=== PATIENT | male | born 1975 | race Caucasian/White ===

== ENCOUNTER 2021-05-16 23:07 | Emergency (ER) | payer OTHER ==
[2021-05-16 23:50] VITALS: TEMP 99.1
[2021-05-16] MEDS ORDERED: ONDANSETRON ODT 4 MG TAB PO STA (23:57)
[2021-05-17] MEDS ORDERED: SOTROVIMAB (EUA) 500 MG in SODIUM CHLORIDE 0.9% 100 ML IVPB ONE (01:30)
[2021-05-17] MEDS ORDERED: SODIUM CHLORIDE 0.9% 50 ML IVPB ONE (01:30)
--- NOTE | 2021-05-17 02:00 | ED ---
URI HPI - General Chief Complaint: Upper Respiratory Infection Stated Complaint: covid+, fever Time Seen by Provider: 05/17/21 01:02 Source: patient, family Mode of arrival: ambulatory Limitations: no limitations - History of Present Illness Initial Comments: This patient is a 45-year-old man who presents with complaint that he has not been feeling well since about Friday. He has been having some chills, feeling nauseated and is feeling increasingly weak. Patient believes that it may be some component of dehydration as she is not taking much by mouth. On Friday he took a home test and it did result positive for covid infection. She denies chest pain or dyspnea. No change in bowel movements. MD Complaint: other Onset/Timin -: days(s) Severity: mild Consistency: constant Improves With: nothing Worsens With: nothing Associated Symptoms: chills, nausea Treatments Prior to Arrival: none - Related Data Allergies Allergy/AdvReac Type Severity Reaction Status Date / Time Penicillins Allergy Unknown Verified 05/16/21 23:50 Childhood Review of Systems ROS Statement: Those systems with pertinent positive or pertinent negative responses have been documented in the HPI. ROS Other: All systems not noted in ROS Statement are negative. Constitutional: Reports: chills, weakness. Denies: fever Respiratory: Denies: cough, dyspnea, wheezes Cardiovascular: Denies: chest pain, edema, syncope Gastrointestinal: Reports: nausea. Denies: abdominal pain, vomiting, diarrhea Skin: Denies: rash Neurological: Denies: headache, weakness Past Medical History Past Medical History: Hypertension History of Any Multi-Drug Resistant Organisms: None Reported Past Surgical History: No Surgical Hx Reported Past Psychological History: No Psychological Hx Reported Smoking Status: Former smoker Past Alcohol Use History: None Reported Past Drug Use History: None Reported General Exam Limitations: no limitations General appearance: alert, in no apparent distress Head exam: Present: atraumatic, normocephalic Eye exam: Present: normal appearance. Absent: scleral icterus, conjunctival injection ENT exam: Present: mucous membranes dry Neck exam: Present: normal inspection Respiratory exam: Present: normal lung sounds bilaterally. Absent: respiratory distress, wheezes, rales, rhonchi, stridor Cardiovascular Exam: Present: regular rate, normal rhythm, normal heart sounds. Absent: systolic murmur, diastolic murmur, rubs, gallop GI/Abdominal exam: Present: soft. Absent: distended, tenderness, guarding, rebound, rigid, mass Extremities exam: Present: normal inspection, normal capillary refill. Absent: pedal edema, calf tenderness Back exam: Present: normal inspection. Absent: CVA tenderness (R), CVA tenderness (L) Neurological exam: Present: alert Skin exam: Present: warm, dry, intact, normal color. Absent: rash Course Vital Signs 05/16/21 23:45 Temperature 99.1 F Pulse Rate 105 H Respiratory 24 Rate Blood Pressure 95/63 O2 Sat by Pulse 94 L Oximetry Medical Decision Making - Lab Data Lab Results 05/16/21 Range/Units 23:57 Coronavirus (PCR) Detected A (Not Detectd) Disposition Clinical Impression: COVID-19 Disposition: HOME SELF-CARE Condition: Good Instructions (If sedation given, give patient instructions): Coronavirus Disease 2019 (COVID-19) Is patient prescribed a controlled substance at d/c from ED?: No Referrals: Siddharth Segal MD [Primary Care Provider] - 1-2 days
[2021-05-17] MEDS ORDERED: SODIUM CHLORIDE 0.9% 1,000 ML IV ONE (02:01)
--- NOTE | 2021-05-17 02:27 | XR ---
EXAMINATION TYPE: XR chest 1V portable DATE OF EXAM: 05/17/2021 COMPARISON: NONE HISTORY: Short of breath TECHNIQUE: Single view FINDINGS: There is some mild interstitial infiltrate in the right lung. Left lung is fairly clear. He art and mediastinum are normal. There is no pleural effusion. Bony thorax is intact. IMPRESSION: Mild right side pneumonia. Normal heart.
[2021-05-17 04:35] VITALS: BP 100/60; PULSE 84; RESP 18
== END 2021-05-17 04:35 | disposition home or self-care (01) ==
LOC: SUPCPDRO 23:07 → EC 23:07
DX: U07.1 COVID-19 (principal); I10 Essential (primary) hypertension; Z87.891 Personal history of nicotine dependence; Z88.0 Allergy status to penicillin
CPT/HCPCS: 87635; 71045; 99285; Q0247